=== PATIENT | male | born 1980 | race Hispanic/Latino ===

== ENCOUNTER 2017-11-28 17:41 | Emergency (ER) | payer SELFPAY ==
[~2017-11-28] VITALS: Ht 165.1 cm; Wt 62.0 kg
[2017-11-28] MEDS ORDERED: MEDDOSEPAK PO (18:19)
[2017-11-28] MEDS ORDERED: PEPCID20 MG PO (18:19)
[2017-11-28] MEDS ORDERED: BENADRYL 25MG C25 MG PO (18:19)
[2017-11-28 18:33] VITALS: BP 134/90
--- NOTE | 2017-11-30 14:15 | NUR ---
Attempted to contact pt via phone number listed, no voicemail box set up. Will send certified letter concerning culture results if unable [email or web address] reach this afternoon.
== END 2017-11-28 18:42 | disposition home or self-care (01) | DRG 918 ==
LOC: ED 17:41
DX: T63.481A Toxic effect of venom of other arthropod, accidental (unintentional), initial encounter (principal); L03.116 Cellulitis of left lower limb; R22.42 Localized swelling, mass and lump, left lower limb